=== PATIENT | male | born 1955 | race Caucasian/White ===

== ENCOUNTER 2025-05-02 12:13 | Outpatient (RCR) | payer MEDICARE, OTHER, SELFPAY | END 2025-05-02 23:59 | disposition home or self-care (01) | LOC: RPT 12:13 | PROVIDERS: ATTENDING PHYSICIAN Physician Assistant Medical; FAMILY PHYSICIAN Nurse Practitioner Family | DX: S49.91XD Unspecified injury of right shoulder and upper arm, subsequent encounter (principal); M25.511 Pain in right shoulder; R20.2 Paresthesia of skin; M62.81 Muscle weakness (generalized); X58.XXXD Exposure to other specified factors, subsequent encounter; Y93.89 Activity, other specified; Y99.0 Civilian activity done for income or pay; Z73.6 Limitation of activities due to disability | CPT/HCPCS: 97110; 97162; 97535 ==

== ENCOUNTER → 2025-05-27 06:53 | Outpatient (REF) | payer MEDICARE, OTHER, SELFPAY | LOC: MRI 3T 06:53 | PROVIDERS: ATTENDING PHYSICIAN Nurse Practitioner Family; FAMILY PHYSICIAN Physician Assistant Medical | DX: M25.511 Pain in right shoulder (principal) | CPT/HCPCS: 73221 ==

== ENCOUNTER 2025-06-01 17:56 | Outpatient (RCR) | payer MEDICARE, OTHER, SELFPAY | END 2025-06-02 06:44 | disposition home or self-care (01) | LOC: RPT 17:56 | PROVIDERS: ATTENDING PHYSICIAN Physician Assistant Medical; FAMILY PHYSICIAN Nurse Practitioner Family | DX: S49.91XD Unspecified injury of right shoulder and upper arm, subsequent encounter (principal); M25.511 Pain in right shoulder; R20.2 Paresthesia of skin; M62.81 Muscle weakness (generalized); X58.XXXD Exposure to other specified factors, subsequent encounter; Y93.89 Activity, other specified; Y99.0 Civilian activity done for income or pay; Z73.6 Limitation of activities due to disability | CPT/HCPCS: 97110; 97140; 97530 ==

== ENCOUNTER → 2025-06-13 08:49 | Outpatient (REF) | payer MEDICARE, OTHER, SELFPAY | LOC: RCS 08:49 | PROVIDERS: ATTENDING PHYSICIAN Orthopaedic Surgery Hand Surgery; FAMILY PHYSICIAN Physician Assistant Medical | DX: Z01.818 Encounter for other preprocedural examination (principal) | CPT/HCPCS: 93005 ==

== ENCOUNTER 2025-08-03 07:28 | Outpatient (RCR) | payer MEDICARE, OTHER, SELFPAY | END 2025-08-03 23:59 | disposition home or self-care (01) | LOC: RPT 07:28 | PROVIDERS: ATTENDING PHYSICIAN Physician Assistant Surgical; FAMILY PHYSICIAN Physician Assistant Medical | DX: Z47.89 Encounter for other orthopedic aftercare (principal); M25.511 Pain in right shoulder; M62.81 Muscle weakness (generalized); S46.011D Strain of muscle(s) and tendon(s) of the rotator cuff of right shoulder, subsequent encounter | CPT/HCPCS: 97010; 97110; 97140; 97162 ==